=== PATIENT | female | born 1940 | race Caucasian/White ===

== ENCOUNTER 2021-11-17 16:27 | Emergency (ER) | payer MEDICARE, BC ==
[~2021-11-17] VITALS: Ht 160 cm; Wt 52.6 kg
--- NOTE | 2021-11-17 17:23 | NUR ---
PATIENT WAS MSE BY DR CABAN.
[2021-11-17] MEDS ORDERED: LIDOCAINE 1%-EPI 1:100,000 20 ML VIAL IJ ONE (17:30)
[2021-11-17] MEDS ORDERED: TDAP DIPH,PERTUSS,TET VAC/PF 0.5 ML DISP.SYRIN IM ONE ×2 (17:30→17:42)
[2021-11-17] MEDS ORDERED: LIDOCAINE 2%-EPI 1:100,000 20 ML VIAL ONE ×2 (17:41→18:05)
[2021-11-17] MEDS ORDERED: LIDOCAINE 2%-EPI 1:100,000 20 ML VIAL IJ ONE (18:30)
--- NOTE | 2021-11-17 18:49 | NUR ---
Patient discharged to home in stable condition. Written and verbal after care instructions given. Patient verbalizes understanding of instructions. Stressed follow up or return to ER for worsening s/s.
[2021-11-17 19:22] VITALS: BP 137/74
== END 2021-11-17 18:49 | disposition home or self-care (01) ==
LOC: ER 16:30
DX: S01.01XA Laceration without foreign body of scalp, initial encounter (principal); V49.88XA Car occupant (driver) (passenger) injured in other specified transport accidents, initial encounter; Y92.89 Other specified places as the place of occurrence of the external cause; S09.90XA Unspecified injury of head, initial encounter; Z79.01 Long term (current) use of anticoagulants
CPT/HCPCS: 70450; 90715; A4663

== ENCOUNTER 2025-03-23 12:25 | Emergency (ER) | payer MEDICARE, BC ==
[~2025-03-23] VITALS: Ht 160 cm; Wt 66.2 kg
[2025-03-23 12:27] VITALS: BP 144/84; O2SAT 98
== END 2025-03-23 13:30 | disposition left against medical advice (07) ==
LOC: ER 12:25
DX: S90.122A Contusion of left lesser toe(s) without damage to nail, initial encounter (principal); W01.0XXA Fall on same level from slipping, tripping and stumbling without subsequent striking against object, initial encounter; Y93.89 Activity, other specified; Y92.89 Other specified places as the place of occurrence of the external cause; Y99.9 Unspecified external cause status
CPT/HCPCS: A4606; A4663